=== PATIENT | male | born 1995 | race Caucasian/White ===

== ENCOUNTER 2017-07-18 06:07 | Emergency (ER) | payer MEDICAID ==
[2017-07-18] MEDS: HYDROCODONE/APAP (10/325) TAB PO (06:40)
== END 2017-07-18 08:00 | disposition home or self-care (01) ==
LOC: FTE 06:07
DX: S89.91XA Unspecified injury of right lower leg, initial encounter (principal); F17.210 Nicotine dependence, cigarettes, uncomplicated; W19.XXXA Unspecified fall, initial encounter; Y92.89 Other specified places as the place of occurrence of the external cause
CPT/HCPCS: 29505; 73562; 73590; 73610-RT; 99283-25